=== PATIENT | male | born 1950 | race Asian ===

== ENCOUNTER 2024-05-08 05:46 | Emergency (ER) | payer OTHER ==
[2024-05-08 06:03] VITALS: BMI 28.3
[2024-05-08] MEDS ORDERED: ACETAMINOPHEN INJECTION 100 ML IVPB ONE (08:24)
[2024-05-08] MEDS: SODIUM CHLORIDE 1,000 ML IV STA (09:45)
[2024-05-08] MEDS: ACETAMINOPHEN 1000 MG/100 ML BAG IVPB ONE (09:45)
[2024-05-08 10:02] VITALS: BP 183/88; PULSE 88; RESP 20; TEMP 98.7
[2024-05-08 10:08] LABS: VENOUS BASE EXCESS 0.2 mmol/L (-2-2); VENOUS O2 SATURATION 84.1 % (70-80); VENOUS PCO2 41.8 mmHg (38-52); VENOUS PH 7.397 (7.310-7.410)
[2024-05-08 10:19] LABS: ALBUMIN 3.7 g/dl (3.4-5.0); BLOOD UREA NITROGEN 11.5 mg/dL (7-18); CALCIUM 8.6 mg/dL (8.5-10.1); MAGNESIUM 2.2 mg/dL (1.8-2.4)
[2024-05-08 10:22] LABS: CREATININE 0.9 mg/dL (0.55-1.3)
[2024-05-08 10:23] LABS: PHOSPHOROUS 2.9 mg/dL (2.5-4.9)
[2024-05-08 10:24] LABS: BILIRUBIN,TOTAL 1.3 mg/dL (0.2-1); TOT PROT 7.4 g/dl (6.4-8.2)
[2024-05-08 13:09] LABS: HEMATOCRIT 38.9 % (35.4-49); HEMOGLOBIN 13.3 GM/dL (11.7-16.9); MCH 31.7 pg (25.7-33.7); MCHC 34.1 g/dl (32.0-35.9); RBC 4.18 M/mm3 (4.00-5.60); RDW 12.5 % (11.9-15.9)
[2024-05-08 13:10] LABS: WHITE BLOOD COUNT 11.6 K/mm3 (4.0-10.0)
[2024-05-08 13:44] LABS: PLATELET ESTIMATE ADEQUATE
[2024-05-08 13:52] LABS: ANISOCYTOSIS 0; MACROCYTOSIS 0
[2024-05-08] MEDS: SODIUM PHOSPHATE/NA BIPHOS 133 ML ENEMA PR ONE (14:30)
== END 2024-05-08 16:35 | disposition home or self-care (01) ==
LOC: JER 05:46
PROC: 3E033NZ Introduction of Analgesics, Hypnotics, Sedatives into Peripheral Vein, Percutaneous Approach (ICD-10-PCS; principal; 2024-05-08)
PROC: 3E0337Z Introduction of Electrolytic and Water Balance Substance into Peripheral Vein, Percutaneous Approach (ICD-10-PCS; 2024-05-08)
DX: K59.00 Constipation, unspecified (principal); R10.31 Right lower quadrant pain; R10.32 Left lower quadrant pain; R53.1 Weakness; R14.0 Abdominal distension (gaseous); R00.0 Tachycardia, unspecified
CPT/HCPCS: 36415; 71045-TC-FY; 74176-TC; 80053; 82272; 82803; 83605; 83690; 83735; 84100; 85025; 93005; 93010; 96361; 96374; 99285-25; J0131

== ENCOUNTER 2024-09-24 12:30 | Emergency (ER) | payer BC, OTHER ==
[2024-09-24] MEDS ORDERED: LIDOCAINE HCL 1%, 10 MG/ML (20ML VIAL) ONE (12:43)
[2024-09-24] MEDS ORDERED: DIPHTH,PERTUSS(ACELL),TET 0.5 ML DISP.SYRIN IM ONE (12:47)
[2024-09-24 12:55] VITALS: PULSE 85; RESP 18; TEMP 97.8; BMI 23.8
[2024-09-24] MEDS: DIPHTH,PERTUSS(ACELL),TET 0.5 ML DISP.SYRIN IM ONE (13:50)
[2024-09-24 14:12] VITALS: BP 96/62
== END 2024-09-24 14:53 | disposition home or self-care (01) ==
LOC: FER 12:30
PROC: 0HCGXZZ Extirpation of Matter from Left Hand Skin, External Approach (ICD-10-PCS; principal; 2024-09-24)
PROC: 3E0234Z Introduction of Serum, Toxoid and Vaccine into Muscle, Percutaneous Approach (ICD-10-PCS; 2024-09-24)
DX: S60.451A Superficial foreign body of left index finger, initial encounter (principal); W45.8XXA Other foreign body or object entering through skin, initial encounter; Z23 Encounter for immunization
CPT/HCPCS: 10120-25; 73130-TC-LT-FY; 90471; 90715; 99284-25

== ENCOUNTER 2025-03-11 11:09 | Emergency (ER) | payer BC ==
[2025-03-11 11:23] VITALS: BP 116/67; PULSE 75; RESP 18; TEMP 98.2; BMI 22.0
[2025-03-11 13:10] LABS: ALBUMIN 4.4 g/dl (3.4-5.0); ALK PHOS 68 U/L (45-117); ANION GAP 6 mmol/L (4-13); BILIRUBIN,TOTAL 0.8 mg/dl (0.2-1); CALCIUM 9.1 mg/dl (8.5-10.1); CHLORIDE 102 mmol/L (98-107); CO2 29 mmol/L (21-32); CREATININE 0.8 mg/dl (0.6-1.3); GLUCOSE,RANDOM 97 mg/dl (74-106); POTASSIUM 4.1 mmol/L (3.5-5.1); SGOT/AST 18 U/L (15-37); SGPT/ALT 27 U/L (7-52); SODIUM 137 mmol/L (136-145)
[2025-03-11 14:04] LABS: HEMATOCRIT 38.9 % (40.1-51.0); HEMOGLOBIN 13.6 g/dL (13.7-17.5); MEAN CELL VOLUME 94.2 fl (79.0-92.2); MEAN PLT VOLUME 11.1 fl (9.4-12.4); PLATELET COUNT 57 x10^3/uL (163-337); RDW 11.4 % (12.2-16.6)
[2025-03-11 15:33] LABS: ERYTHROCYTE SEDIMENTATION RATE 7 mm/hr (0-20)
== END 2025-03-11 16:00 | disposition home or self-care (01) ==
LOC: FER 11:09
DX: H53.8 Other visual disturbances (principal)
CPT/HCPCS: 36415; 70450-TC; 70480-TC; 80053; 85027; 85651; 99284-25